=== PATIENT | male | born 1965 | race Caucasian/White ===

== ENCOUNTER 2018-07-15 16:31 | Observation (INO) ==
[2018-07-15] MEDS ORDERED: NALOXONE HCL 0.4 MG/ML VIAL IV PRN (17:35)
[2018-07-15] MEDS ORDERED: ACETAMINOPHEN 325 MG TABLET PO PRN (17:35)
[2018-07-15] MEDS ORDERED: 0.9 % SODIUM CHLORIDE 1,000 ML IV SCH (17:45)
[2018-07-15] MEDS ORDERED: PIPERACILLIN SODIUM/TAZOBACTAM 3.375 GM in DEXTROSE 5% IN WATER 50 ML IV ONE (18:00)
--- NOTE | 2018-07-15 18:07 | Internal Med History&Physical ---
Medical - H&P: [facility] Patient information: Note initiated : 07/15/18 at 6:01 pm Service Date, if different from initiated Date: [] Patient: Juan Antonio Crane a 53 y/o M admitted on 07/15/18 for Aspiration. Chief Complaint: [] History of present illness: Mr. Crane is a 53 year old M with h/o severe gerd, was having his EGD done for same, he had drank some water before the procedure, The patient during the procedure aspirated gastric contents, no food or solid particles, Dr weiner noted same during EGD. The patient post procedure developed chest sorness, left sided, some cough and had increased oxygen needs, osat 91%. Chest x ray showed aspiration, and some atelectasis in the left upper lobe, consideration for blockage? pt had no solid food before the procedure and Dr weiner is certain that there is no solid food particle aspirated. We do not have a Wash Mill Operator available at this time The patient is being admitted directly to the floor for observation. Labs/ IV antibiotics ordered. Review of systems: CONSTITUTIONAL: No weight loss, fever, chills, weakness or fatigue. HEENT: Eyes: No visual loss, blurred vision, double vision or yellow sclerae. Ears, Nose, Throat: No hearing loss, sneezing, congestion, runny nose or sore throat. SKIN: No rash or itching. CARDIOVASCULAR: No chest pain, chest discomfort with coughing present. RESPIRATORY: some sob present, cough present, dry. GASTROINTESTINAL: No nausea, vomiting or diarrhea or constipation. No abdominal pain or blood in stools No Tiffany. GENITOURINARY: Denies Burning on urination. Blood in urine, or foul smelling urine NEUROLOGICAL: No headache, dizziness, syncope, paralysis, tremors, numbness or tingling in the extremities. No change in bowel or bladder control. MUSCULOSKELETAL: No muscle, back pain, joint pain or stiffness. HEMATOLOGIC: No bleeding or bruising. No enlarged nodes PSYCHIATRIC:h/o depression and anxiety. ENDOCRINOLOGIC: No reports of sweating, cold or heat intolerance. No polyuria or polydipsia. ALLERGIES: No hives, eczema or rhinitis. Skin: No rash, no jaundice, cyanosis or pallor. Medical - H&P: PMH Medical history: GERD anxiety depression Hyponatremia Surgical history: none Family history: reviewed and not pertinent Social history: ex smoker social etoh denies recreational drug use Medical - H&P: Meds Home Medications Medication Instructions Recorded Confirmed Type Gabapentin 600 mg PO TID 10/30/17 07/15/18 History OLANZapine [Zyprexa] 10 mg PO HS 10/30/17 07/15/18 History carBAMazepine [TEGretol] 200 mg PO ACB 10/30/17 07/15/18 History carBAMazepine [TEGretol] 400 mg PO HS 10/30/17 07/15/18 History venlafaxine ER 150 mg 150 mg PO QAM 03/21/18 07/15/18 History capsule,extended release 24 hr Lysine 1,000 mg PO DAILY 06/23/18 07/15/18 History Ascorbate Calcium [Vitamin C] 500 mg PO QAM 07/15/18 07/15/18 History Loratadine [Loradamed] 10 mg PO QAM 07/15/18 07/15/18 History Allergies Allergy/AdvReac Type Severity Reaction Status Date / Time No Known Intolerances Allergy Unknown Other Verified 06/23/18 12:38 Medical - H&P: Exam - Constitutional Exam: GENERAL: The patient is a well-developed, well-nourished in no apparent distress. Is alert and oriented x3. VITAL SIGNS: Reviewed and as noted elsewhere. HEENT: Head is normocephalic and atraumatic. Extraocular muscles are intact. Pupils are equal, round, and reactive to light. Nares appeared normal. Mouth appears any without lesions. Mucous membranes are moist. NECK: Normal to inspection, Supple, No lymphadenopathy or thyromegaly. LUNGS: Air entry equal on both sides,, some crackles noted on left mid zone. no active wheezing appreciated HEART: Regular rate and rhythm normal, S1 and S2 heard, no Gallop, S3 or Rub Noted, No Gross murmur heard. ABDOMEN: Soft, nontender, and nondistended. Positive bowel sounds. No hepatosplenomegaly was noted. EXTREMITIES: No cyanosis, clubbing, rash, lesions or edema. NEUROLOGIC: Cranial nerves II through XII are grossly intact. Motor and Sensory System Grossly Intact PSYCHIATRIC: Normal affect, Normal Mood. Appropriate Behavior. SKIN: No ulceration or wounds noted, No jaundice, No rash noted. Medical - H&P: A/P - Narrative A/P Narrative: A/P Aspiration pneumonitis Hypoxia GERD Anxiety/ Depression Chronic Hyponatremia Plan observe on tele, reviewed with him that pt may likely remain stable , but aspiration can worsen hence the need for monitoring. IV zosyn for now incentive spirometery resume home meds IV PPI repeat CXR in AM, DVT hep sq Regular diet Full code. Labs pending, .
[2018-07-15] MEDS: PANTOPRAZOLE 40 MG VIAL IV SCH (18:08)
[2018-07-15] MEDS: PIPERACILLIN SODIUM/TAZOBACTAM 3.375 GM in DEXTROSE 5% IN WATER 50 ML IV SCH ×2 (18:09→23:50)
[2018-07-15 20:09] LABS: Basophils # (Auto) 0 K/mcL (0.0-0.3); Basophils % (Auto) 0 % (0.0-2.0); Eosinophils # (Auto) 0.1 K/mcL (0.0-0.7); Eosinophils % (Auto) 1.1 % (0.0-7.0); Granulocytes % (Auto) 89.6 % (38.0-78.0); Lymphocytes # (Auto) 0.7 K/mcL (1.5-4.8); Lymphocytes % (Auto) 5.7 % (15.5-49.0); Mean Cell Volume 95.4 fL (80.0-100.0); Mean Corpuscular HGB Conc 34.3 g/dL (31.0-36.0); Mean Corpuscular Hemoglobin 32.7 pg (26.0-34.0); Monocytes # (Auto) 0.5 K/mcL (0.1-0.9); Monocytes % (Auto) 3.6 % (1.0-12.0); Platelet Count 277 K/mcL (140-440); RBC 4.84 M/mcL (4.50-5.90); Red Cell Distribution Width 12.7 % (11.5-14.5)
[2018-07-15] MEDS: 0.9 % SODIUM CHLORIDE 10 ML SYRINGE IV SCH (20:20)
[2018-07-15] MEDS: GABAPENTIN 300 MG CAPSULE PO SCH (20:23)
[2018-07-15] MEDS: HEPARIN 5,000 UNIT/ML VIAL SQ SCH (20:23)
[2018-07-15 20:30] LABS: ALT/SGPT 33 U/l (0-40); Albumin 4.6 gm/dL (3.2-5.2); Albumin/Globulin Ratio 1.4 (1.0-2.3); Alkaline Phosphatase 124 U/L (39-117); Bilirubin,Direct < 0.2 mg/dL (0.0-0.3); Blood Urea Nitrogen 7 mg/dl (6-20); Gamma Glutamyl Transpeptidase 129 U/L (8-61); Uric Acid 3.5 mg/dL (2.5-8.0)
[2018-07-15] MEDS ORDERED: OLANZapine 5 MG TABLET PO SCH (21:00)
[2018-07-15] MEDS ORDERED: carBAMazepine 200 MG TABLET PO SCH (21:00)
[2018-07-15] MEDS: HYDROcodone/APAP 5/325MG TABLET PO PRN (22:28)
[2018-07-16] MEDS: 0.9 % SODIUM CHLORIDE 10 ML SYRINGE IV SCH (04:28)
[2018-07-16] MEDS: PIPERACILLIN SODIUM/TAZOBACTAM 3.375 GM in DEXTROSE 5% IN WATER 50 ML IV SCH (06:05)
[2018-07-16 06:12] LABS: Basophils # (Auto) 0 K/mcL (0.0-0.3); Basophils % (Auto) 0 % (0.0-2.0); Eosinophils # (Auto) 0.2 K/mcL (0.0-0.7); Eosinophils % (Auto) 2.1 % (0.0-7.0); Granulocytes % (Auto) 81.3 % (38.0-78.0); Lymphocytes # (Auto) 1.2 K/mcL (1.5-4.8); Lymphocytes % (Auto) 12.1 % (15.5-49.0); Mean Corpuscular HGB Conc 34.3 g/dL (31.0-36.0); Mean Corpuscular Hemoglobin 32.6 pg (26.0-34.0); Monocytes # (Auto) 0.4 K/mcL (0.1-0.9); Monocytes % (Auto) 4.5 % (1.0-12.0); Platelet Count 241 K/mcL (140-440); RBC 4.27 M/mcL (4.50-5.90); Red Cell Distribution Width 12.7 % (11.5-14.5)
[2018-07-16 06:20] LABS: ALT/SGPT 28 U/l (0-40); Albumin/Globulin Ratio 1.4 (1.0-2.3); Alkaline Phosphatase 104 U/L (39-117); Bilirubin,Direct < 0.2 mg/dL (0.0-0.3); Blood Urea Nitrogen 8 mg/dl (6-20); Gamma Glutamyl Transpeptidase 117 U/L (8-61); Uric Acid 2.6 mg/dL (2.5-8.0)
[2018-07-16] MEDS ORDERED: carBAMazepine 200 MG TABLET PO SCH ×3 (07:30→16:00)
[2018-07-16] MEDS: HYDROcodone/APAP 5/325MG TABLET PO PRN (07:33)
[2018-07-16] MEDS: PANTOPRAZOLE 40 MG VIAL IV SCH (07:35)
--- NOTE | 2018-07-16 08:39 | XRay Report ---
CLINICAL INFORMATION: Follow-up left upper lobe pneumonia/atelectasis COMPARISON: Yesterday's chest x-ray - 07/15/2018 FINDINGS: Heart size, mediastinum and pulmonary vessels are normal. Left upper lobe infiltrate/atelectasis has resolved. Lungs are clear. No effusions. Bones and soft tissues are normal. IMPRESSION: Interval resolution in left upper lobe infiltrate/atelectasis Interpreted and Authenticated by: Joel Nava 07/16/18
[2018-07-16] MEDS: GABAPENTIN 300 MG CAPSULE PO SCH (08:45)
[2018-07-16] MEDS: HEPARIN 5,000 UNIT/ML VIAL SQ SCH (08:45)
[2018-07-16] MEDS ORDERED: VENLAFAXINE 150 MG CAP.XL.24H PO SCH (09:00)
[2018-07-16] MEDS ORDERED: ASCORBIC ACID 500 MG TABLET PO SCH (09:00)
[2018-07-16] MEDS ORDERED: LYSINE 1000 MG PO SCH (09:00)
[2018-07-16] MEDS ORDERED: LORATADINE 10 MG TABLET PO SCH (09:00)
--- NOTE | 2018-07-16 09:22 | Discharge Summary ---
Medical - DS: Prov Patient information: Note initiated : 07/16/18 at 9:19 am Service Date, if different from initiated Date: [] Patient: Juan Antonio Crane 53 y/o M admitted on 07/15/18 for Aspiration. Chief Complaint: [] Date of admission: 07/15/18 17:43 Discharge date: 07/16/18 Primary care physician: Samantha Carrington Admitting clinician: Dylon Evans Discharging clinician: Dylon Evans Medical - DS: Meds - Discharge Medications Prescriptions: Amoxicillin/Potassium Clav [Augmentin] 875 mg PO Q12H #8 tab Active and Home Medications: Home Medications Gabapentin 600 mg PO TID 10/30/17 [History Confirmed 07/15/18 Last Taken 08:30] OLANZapine [Zyprexa] 10 mg PO HS 10/30/17 [History Confirmed 07/15/18 Last Taken 07/15/18 08:30] carBAMazepine [TEGretol] 200 mg PO ACB 10/30/17 [History Confirmed 07/15/18 Last Taken 07/15/18 08:30] carBAMazepine [TEGretol] 400 mg PO 1600 10/30/17 [History Confirmed 07/15/18 Last Taken 07/14/18] venlafaxine ER 150 mg capsule,extended release 24 hr 150 mg PO QAM 03/21/18 [ History Confirmed 07/15/18 Last Taken 07/15/18 08:30] Lysine 1,000 mg PO DAILY 06/23/18 [History Confirmed 07/15/18 Last Taken 08:30] Ascorbate Calcium [Vitamin C] 500 mg PO QAM 07/15/18 [History Confirmed Last Taken 07/15/18] Loratadine [Loradamed] 10 mg PO QAM 07/15/18 [History Confirmed 07/15/18 Last Taken 07/15/18] Medical - DS: Hosp Hospital course: Mr. Crane is a 53 year old M with h/o severe gerd, was having his EGD done for same, he had drank some water before the procedure, The patient during the procedure aspirated gastric contents, no food or solid particles, Dr weiner noted same during EGD. The patient post procedure developed chest sorness, left sided, some cough and had increased oxygen needs, osat 91%. Chest x ray showed aspiration, and some atelectasis in the left upper lobe, consideration for blockage? pt had no solid food before the procedure and Dr weiner is certain that there is no solid food particle aspirated. We do not have a Rag Baler available at this time The patient was admitted as obs overnight, labs showed leucocytosis yesterday, this AM leucocytosis is resolved, pt is back to baseline, not on any oxygen. The patient repeat CXR shwos resolved pneumonitis/ atelectasis Will discharge home with another 4 days of amoxicillin-clav to complete a 5 day course . Discharge diagnosis: aspiration pna - Time Spent with Patient Total time spent providing and/or coordinating discharge services: Less than 30 minutes Medical - DS: Exam - Constitutional Vitals: Vital Signs Temp Pulse Resp BP Pulse Ox 07/16/18 07:45 68 20 94 07/16/18 07:41 97.7 F 68 20 137/82 94 07/16/18 04:00 97.7 F 66 20 124/76 93 07/16/18 01:51 94 07/16/18 00:00 98.7 F 87 22 134/83 91 07/15/18 21:22 95 07/15/18 20:00 98.4 F 85 22 160/94 93 07/15/18 18:01 97.1 F 73 16 141/91 94 Intake and Output 07/15/18 07/16/18 07/16/18 21:59 05:59 13:59 Intake Total 570 / 570 1400 / 1400 350 / 350 Output Total 175 / 175 985 / 985 400 / 400 Balance 395 / 395 415 / 415 -50 / -50 Intake: IV 1100 / 1100 Sodium Chloride 0.9% 1,000 ml @ 1000 / 1000 100 mls/hr IV .Q10H VANNESA Rx#: [id number] Zosyn 3.375 gm In Dextrose 5% 100 / 100 in Water 50 ml @ 100 mls/hr IV ONCE ONE Rx#:[id number] Oral 570 / 570 300 / 300 350 / 350 Output: Void Amount 175 / 175 985 / 985 400 / 400 Other: Meal Dinner Breakfast Percent of Meal Consumed 100% 40% Feeding Ability Independent Independent Urine Appearance Clear Clear Urine Color Pale Bright Yellow Urine Odor Normal Normal # Voids 1 Weight 184 lb 8 oz Additional comments: Constitutional; Afebrile, cooperative, alert, not in distress. Eyes- No icterus, , No periorbital swelling Ears- Ext ear normal, hearing normal to conversation. Neck- Midline trachea, supple Respiratory system: Air Entry equal on both sides, No crackles or wheezing, no rhonchi. CVS- Rate rhythm regular, S1,S2 heard, no gallop, no rub. Abdomen- Soft nontender abdomen, no organomegaly, no tenderness, no guarding or rigidity, APPLIQUER ZIGZAG- AOOx3, moving all extremities, no gross focal deficit noted. Medical - DS: Data Labs on day of discharge: Labs from last 24 hours 07/16/18 07/16/18 07/15/18 04:40 04:40 18:39 WBC 9.5 RBC 4.27 L Hgb 13.9 Hct 40.6 L MCV 95.0 MCH 32.6 MCHC 34.3 RDW 12.7 Plt Count 241 MPV 7.8 Gran % 81.3 H Lymph % (Auto) 12.1 L Butler % (Auto) 4.5 Eos % (Auto) 2.1 Baso % (Auto) 0 Gran # 7.7 Lymph # (Auto) 1.2 L Butler # (Auto) 0.4 Eos # (Auto) 0.2 Baso # (Auto) 0 Sodium 135 Potassium 3.5 Chloride 99 Carbon Dioxide 24 Anion Gap 12.0 BUN 8 Creatinine 0.7 GFR Calculation 108 Glucose 86 Uric Acid 2.6 Calcium 8.8 Phosphorus 3.7 Magnesium 1.9 Total Bilirubin 0.6 Direct Bilirubin < 0.2 GGT 117 H AST 21 ALT 28 Alkaline Phosphatase 104 Lactate Dehydrogenase 186 Total Protein 6.8 Albumin 4.0 Globulin 2.8 Albumin/Globulin Ratio 1.4 Triglycerides 94 Procalcitonin < 0.05 07/15/18 07/15/18 18:39 18:39 WBC 12.7 H RBC 4.84 Hgb 15.8 Hct 46.1 MCV 95.4 MCH 32.7 MCHC 34.3 RDW 12.7 Plt Count 277 MPV 7.6 Gran % 89.6 H Lymph % (Auto) 5.7 L Butler % (Auto) 3.6 Eos % (Auto) 1.1 Baso % (Auto) 0 Gran # 11.4 H Lymph # (Auto) 0.7 L Butler # (Auto) 0.5 Eos # (Auto) 0.1 Baso # (Auto) 0 Sodium 138 Potassium 3.6 Chloride 98 Carbon Dioxide 26 Anion Gap 14.0 BUN 7 Creatinine 0.7 GFR Calculation 108 Glucose 84 Uric Acid 3.5 Calcium 9.2 Phosphorus 3.0 Magnesium 2.1 Total Bilirubin 0.4 Direct Bilirubin < 0.2 GGT 129 H AST 27 ALT 33 Alkaline Phosphatase 124 H Lactate Dehydrogenase 218 Total Protein 7.8 Albumin 4.6 Globulin 3.2 Albumin/Globulin Ratio 1.4 Triglycerides 161 H Procalcitonin Medical - DS: A/P - Patient/Caregiver Discharge Instructions Activity: increase activity as tolerated Diet: Regular Diet Additional Instructions: Take antibiotic for another 4 days GO to the ER if fever, cough, chest pain and or shortness of breath or any other concerning symptom No changes made to you chronic home medication list, take them as prescribed by your doctor Follow up with Dr Weiner and your PCP as previously scheduled. - Follow up Plan Disposition: Home, Self-Care Prognosis: Good Rehab Potential: Good I certify that the patient requires SNF services: No Overall status at discharge: patient is back to baseline
== END 2018-07-16 11:15 | disposition home or self-care (01) ==
LOC: MEDSUR → PREINTOOBSV 16:31
PROVIDERS: ADMIT Internal Medicine; ATTEND Internal Medicine